=== PATIENT | male | born 1950 | race Caucasian/White ===

== ENCOUNTER 2017-10-18 12:57 | Inpatient (IN) | payer OTHER ==
[2017-10-18 13:49] VITALS: BMI 22.5
--- NOTE | 2017-10-18 18:21 | HP ---
COWS - Scale Resting Pulse: 0= [place] 80 or Below Sweatin= Chills/Flushing Restless Observation: 1= Difficult to Sit Still Pupil Size: 0= Normal to Room Light Bone or Joint Aches: 1= Mild Discomfort Runny Nose/ Eye Tearin= Runny Nose/Eyes GI Upset > 30mins: 0= None Tremor Observation: 1= Tremor [place], Not Seen Yawning Observation: 4= Several Times/Minute Anxiety or Irritability: 2=Irritable/Anxious Goose Flesh Skin: 0=Smooth Skin COWS Score: 12 Admission [facility] Chief Complaint: heroin withdrawal symptoms Allergies/Adverse Reactions: Allergies Allergy/AdvReac Type Severity Reaction Status Date / Time No Known Allergies Allergy Verified 10/18/17 17:03 History of Present Illness: 67 yo male with heroin dependence is here seeking detox. PMHX: DM II on oral medication, HTN, insomnia, depression. Reports last detox at [facility] in 2016, reports has not attempted any other detox or treatment program. Longest period of sobriety 1 year.Denies hx seizure, OD, black outs. Denies suicidal / homicidal ideation or suicide attempts. Exam Limitations: No Limitations - Ebola screening Have you traveled outside of the country in the last 21 days: No Have you had contact with anyone from an Ebola affected area: No Have you been sick,other than usual withdrawal symptoms: No - Review of Systems Constitutional: Chills, Changes in sleep (on average goes about 2-3 days without sleep) EENT: reports: Nose Congestion, Dental Problems (missing all teeth) Respiratory: reports: No Symptoms reported Cardiac: reports: Irregular Heart Rate GI: reports: Poor Fluid Intake : reports: No Symptoms Reported Musculoskeletal: reports: Muscle Weakness Integumentary: reports: No Symptoms Reported Neuro: reports: No Symptoms reported Endocrine: reports: Increased Thirst Hematology: reports: No Symptoms Reported Psychiatric: reports: Orientated x3, Depressed Other Systems: Reviewed and Negative Patient History - Patient Medical History Hx Anemia: No Hx Asthma: No Hx Chronic Obstructive Pulmonary Disease (COPD): No Hx Cancer: No Hx Cardiac Disorders: No Hx Congestive Heart Failure: No Hx Hypertension: Yes Hx Hypercholesterolemia: No Hx Pacemaker: No HX Cerebrovascular Accident: No Hx Seizures: No Hx Dementia: No Hx Diabetes: Yes (Type II) Hx Gastrointestinal Disorders: No Hx Liver Disease: No Hx Genitourinary Disorders: No Hx Sexually Transmitted Disorders: No Hx Renal Disease (ESRD): No Hx Thyroid Disease: No Hx Human Immunodeficiency Virus (HIV): No Hx Hepatitis C: No Hx Depression: No Hx Suicide Attempt: No Hx Bipolar Disorder: No Hx Schizophrenia: No - Patient Surgical History Past Surgical History: Yes Hx Neurologic Surgery: No Hx Cataract Extraction: No Hx Cardiac Surgery: No Hx Lung Surgery: No Hx Breast Surgery: No Hx Breast Biopsy: No Hx Abdominal Surgery: No Hx Appendectomy: No Hx Cholecystectomy: No Hx Genitourinary Surgery: No Hx Section: No Hx Orthopedic Surgery: No Other Surgical History: left 2nd toe amputation w/ local anesthesia Anesthesia Reaction: No - PPD History Previous Implant?: Yes Documented Results: Negative w/o proof Implanted On Prior [facility] Admission?: Yes Date: 05/01/16 Results: 0mm PPD to be Administered?: Yes - Reproductive History Patient is a Female of Child Bearing Age (11 -55 yrs old): No - Smoking Cessation Smoking history: Never smoked Have you smoked in the past 12 months: No Hx Chewing Tobacco Use: No Initiated information on smoking cessation: No - Substance & Tx. History Hx Alcohol Use: No Hx Substance Use: Yes Substance Use Type: Heroin Hx Substance Use Treatment: Yes ([facility] 2015) - Substances Abused Heroin Route: Inhalation Frequency: Daily Amount used: 10 bags Age of first use: 21 Date of Last Use: 10/17/17 Family Disease History - Family Disease History Family History: Unable to Obtain (does not know family history) Admission Physical Exam BHS - Vital Signs Vital Signs: Vital Signs - 24 hr 10/18/17 13:47 Temperature 96.3 F L Pulse Rate 58 L Respiratory 20 Rate Blood Pressure 187/96 - Physical General Appearance: Yes: Disheveled, Mild Distress, Thin, Anxious HEENTM: Yes: EOMI, Hearing grossly Normal, Normocephalic, Normal Voice, Pharynx Normal, Tm's normal, Nasal Congestion Respiratory: Yes: Chest Non-Tender, Lungs Clear, Normal Breath Sounds, No Respiratory Distress, No Accessory Muscle Use Neck: Yes: Within Normal Limits Breast: Yes: Breast Exam Deferred Cardiology: Yes: Regular Rhythm, Regular Rate Abdominal: Yes: Normal Bowel Sounds, Non Tender, Flat, Soft Genitourinary: Yes: Within Normal Limits Back: Yes: Normal Inspection Musculoskeletal: Yes: full range of Motion, Gait Steady, Pelvis Stable Extremities: Yes: Normal Capillary Refill, Normal Inspection, Normal Range of Motion, Non-Tender Neurological: Yes: Within Normal Limits, court assistant II-XII NML intact, Fully Oriented, Alert, Motor Strength 5/5, Depressed Affect Integumentary: Yes: Normal Color, Warm, Moist, Other (poor skin turgor) Lymphatic: Yes: Within Normal Limits - Addiitonal Findings: [facility] OFFICIAL: Reference #: [id number] , no narcotics prescribe since 05/31/17. Medication list review, patient denies ever taking isosorbide, labetalol or atorvastatin - Diagnostic (1) Diabetes mellitus type II, non insulin dependent Current Visit: Yes Status: Chronic (2) Opioid dependence with withdrawal Current Visit: Yes Status: Acute (3) Hypertension Current Visit: Yes Status: Acute Qualifiers: Hypertension type: essential hypertension Qualified Code(s): I10 - Essential (primary) hypertension (4) Depressed affect Current Visit: Yes Status: Acute (5) Elevated blood pressure reading in office with diagnosis of hypertension Current Visit: Yes Status: Acute (6) Elevated blood sugar level Current Visit: Yes Status: Acute (7) Dehydration Current Visit: Yes Status: Acute Cleared for Admission [facility] - Detox or Rehab [facility] Level of Care: Medically Managed Detox Regimen/Protocol: Methadone S Breath Alcohol Content Breath Alcohol Content: 0 Urine Drug Screen - Results Drug Screen Negative: No Urine Drug Screen Results: OPI-Opiates, MTD-Methadone
[2017-10-18] MEDS ORDERED: MAGNESIUM CITRATE 300 ML BOTTLE PO PRN (18:33)
[2017-10-18] MEDS ORDERED: MAG HYDROX/AL HYDROX/SIMETH 30 ML UNIT-DOSE CUP PO PRN (18:33)
[2017-10-18] MEDS ORDERED: P-EPHED 60MG/TRIPROLIDI 2.5MG TABLET PO PRN (18:33)
[2017-10-18] MEDS ORDERED: LOPERAMIDE HCL 2 MG CAPSULE PO PRN (18:33)
[2017-10-18] MEDS ORDERED: MAGNESIUM HYDROX 2400MG/30ML ORAL SUSPENSION 30 ML CUP PO PRN (18:33)
[2017-10-18] MEDS ORDERED: METHADONE HCL 10 MG TABLET (FOR DETOX USE ONLY) PO ONE ×2 (18:33→23:00)
[2017-10-18] MEDS ORDERED: guaiFENesin/D-METHORPHAN HB 10 ML UNIT-DOSE CUPS PO PRN (18:33)
[2017-10-18] MEDS ORDERED: hydrOXYzine PAMOATE 50 MG CAPSULE (FP) PO PRN (18:33)
[2017-10-18] MEDS ORDERED: ACETAMINOPHEN 325 MG TABLET (FP) PO PRN (18:33)
[2017-10-18] MEDS ORDERED: MENTHOL/PHENOL 1 EACH UD MM PRN (18:33)
[2017-10-18] MEDS ORDERED: IBUPROFEN 400 MG TABLET (FP) PO PRN (18:33)
[2017-10-18] MEDS: diazePAM 5 MG TABLET PO PRN (19:50)
[2017-10-18] MEDS: amLODIPine BESYLATE 5 MG TABLET (FP) PO SCH (19:51)
[2017-10-18] MEDS: LISINOPRIL 20 MG TABLET (FP) PO SCH (19:51)
[2017-10-18] MEDS: MELATONIN 5 MG TABLETS PO SCH (22:12)
[2017-10-18] MEDS: THIAMINE HCL 100 MG TABLET (FP) PO SCH (22:12)
[2017-10-19 01:40] LABS: URINE APPEARANCE CLEAR; URINE BILIRUBIN NEGATIVE (NEGATIVE); URINE BLOOD NEGATIVE (NEGATIVE); URINE COLOR LTYELLOW; URINE GLUCOSE (UA) 3+ (NEGATIVE); URINE KETONE NEGATIVE (NEGATIVE); URINE LEUK ESTERASE NEGATIVE (NEGATIVE); URINE NITRITE NEGATIVE (NEGATIVE); URINE UROBILINOGEN NEGATIVE mg/dL (0.2-1.0)
[2017-10-19 02:00] LABS: URINE PROTEIN 3+ (NEGATIVE)
[2017-10-19 02:03] LABS: URINE MUCUS RARE
[2017-10-19] MEDS: diazePAM 5 MG TABLET PO PRN ×2 (06:17→22:39)
[2017-10-19] MEDS: metFORMIN HCL 500 MG TABLET (FP) PO SCH ×2 (06:18→17:29)
[2017-10-19] MEDS ORDERED: INSULIN (NOVOLOG) ASPART 100 UNITS/ML 10ML VIAL ONE ×2 (07:15→17:28)
[2017-10-19] MEDS: INSULIN SLIDING SCALE (NOVOLOG) 1 VIAL SQ SCH ×2 (07:22→17:30)
--- NOTE | 2017-10-19 08:59 | PN ---
BHS COWS - Scale Resting Pulse: 0= [place] 80 or Below Sweatin= Chills/Flushing Restless Observation: 3= Extraneous Movement Pupil Size: 1= Pupils >than Normal Bone or Joint Aches: 2= Severe Diffuse Aches Runny Nose/ Eye Tearin= Runny Nose/Eyes GI Upset > 30mins: 2= Nausea/Diarrhea Tremor Observation of Outstretched Hands: 2= Slight Tremor Visible Yawning Observation: 2= >3x During Session Anxiety or Irritability: 2=Irritable/Anxious Goose Flesh Skin: 0=Smooth Skin COWS Score: 17 BHS Progress Note (SOAP) Subjective: ALERT,IRRITABLE,ANXIOUS,INTERRUPTED SLEEP,TREMOR,PAIN IN THE BODY AND BACK Objective: 10/19/17 08:57 Vital Signs Temperature 97.7 F 10/19/17 06:00 Pulse Rate 64 10/19/17 07:30 Respiratory Rate 18 10/19/17 07:30 Blood Pressure 142/76 10/19/17 07:30 O2 Sat by Pulse Oximetry (%) EKG SINUS BRADYCARDIA 53/MIN NO CHEST PAIN,NO SOB,NO DIZZINESS Laboratory Last Values POC Glucometer 187 UNITS (80-120) 10/19/17 06:10 Urine Color Ltyellow 10/18/17 22:56 Urine Appearance Clear 10/18/17 22:56 Urine pH 6.0 (5.0-8.0) 10/18/17 22:56 Ur Specific [place] 1.014 (1.001-1.035) 10/18/17 22:56 Urine Protein 3+ (NEGATIVE) H 10/18/17 22:56 Urine Glucose (UA) 3+ (NEGATIVE) H 10/18/17 22:56 Urine Ketones Negative (NEGATIVE) 10/18/17 22:56 Urine Blood Negative (NEGATIVE) 10/18/17 22:56 Urine Nitrite Negative (NEGATIVE) 10/18/17 22:56 Urine Bilirubin Negative (NEGATIVE) 10/18/17 22:56 Urine Urobilinogen Negative mg/dL (0.2-1.0) 10/18/17 22:56 Ur Leukocyte Esterase Negative (NEGATIVE) 10/18/17 22:56 Urine WBC (Auto) 2 /hpf (3-5) 10/18/17 22:56 Urine RBC (Auto) 1 /hpf (0-3) 10/18/17 22:56 Urine Mucus Rare 10/18/17 22:56 LABS PENDING Assessment: 10/19/17 08:58 WITHDRAWAL SYMPTOM Plan: CONTINUE DETOX,BGM MONITORING
[2017-10-19] MEDS ORDERED: METHADONE HCL 10 MG TABLET (FOR DETOX USE ONLY) PO ONE (10:00)
--- NOTE | 2017-10-19 10:07 | CONSULT ---
[facility] Psychiatric Consult - Data Date of interview: 10/19/17 Admission source: [facility] Identifying data: This is 67 years old male, , father of two, homeless , on SSI, with Opioid dependence is here seeking detox. Patoejnt reports no psychiatric hospitalization hiostory. Substance Abuse History: - Smoking Cessation. Smoking history: Never smoked. Have you smoked in the past 12 months: No. Hx Chewing Tobacco Use: No. Initiated information on smoking cessation: No. - Substance & Tx. History. Hx Alcohol Use: No. Hx Substance Use: Yes. Substance Use Type: Heroin. Hx Substance Use Treatment: Yes ([facility] 2016). - Substances Abused. Heroin. Route: Inhalation. Frequency: Daily. Amount used: 10 bags. Age of first use: 21. Date of Last Use: 10/17/17 Medical History: DM-2, HTN, Psychiatric History: Ptient reports history of depression, reports no psychiatric hospitalization history, reports no psychiatric medications taking prior to admission, reports no suicidal history. Physical/Sexual Abuse/Trauma History: Denies Additional Comment: Observation. Detox Unit Care Protocol Mental Status Exam - Mental Status Exam Alert and Oriented to: Person Cognitive Function: Fair Patient Appearance: Unkempt Mood: Sad Affect: Flat Patient Behavior: Sedated Speech Pattern: Delayed Voice Loudness: Mildly Soft/Quiet Thought Process: Circumstantial Thought Disorder: Being Controlled Hallucinations: Denies Suicidal Ideation: Denies Homicidal Ideation: Denies Insight/Judgement: Fair Sleep: Difficulty falling asleep Appetite: Weight gain Muscle strength/Tone: Mild Hypotonicity Gait/Station: Shuffling Additional Comments: Observation. Detox Unit Care Protocol Psychiatric Findings - Problem List ([place] 1, 2,3) (1) Opioid-induced mood disorder Current Visit: Yes Status: Acute (2) Opioid dependence with withdrawal Current Visit: Yes Status: Acute (3) Heroin dependence Current Visit: No Status: Acute - Initial Treatment Plan Initial Treatment Plan: Observation. Detox Unit Care Protocol
[2017-10-19 10:21] LABS: HEMATOCRIT 31.5 % (35.4-49); HEMOGLOBIN 10.3 GM/dL (11.7-16.9); MCH 27.5 pg (25.7-33.7); MCHC 32.5 g/dl (32.0-35.9); MEAN CELL VOLUME 84.4 fl (80-96); MEAN PLT VOLUME 8.5 fl (7.5-11.1); PLATELET COUNT 271 K/MM3 (134-434); RBC 3.74 M/mm3 (4.00-5.60); RDW 15.5 % (11.9-15.9); WHITE BLOOD COUNT 6.7 K/mm3 (4.0-10.0)
[2017-10-19 10:42] LABS: CHLORIDE 104 mmol/L (98-107); POTASSIUM 4.5 mmol/L (3.5-5.1); SODIUM 139 mmol/L (136-145)
[2017-10-19] MEDS: PRENATAL VITAMINS W/ FOLIC ACID TABLET (FP) PO SCH (10:44)
[2017-10-19] MEDS: amLODIPine BESYLATE 5 MG TABLET (FP) PO SCH (10:45)
[2017-10-19] MEDS: LISINOPRIL 20 MG TABLET (FP) PO SCH (10:46)
[2017-10-19 10:58] LABS: ALBUMIN 2.3 g/dl (3.4-5.0); ALK PHOS 120 U/L (45-117); ANION GAP 9 (8-16); BILIRUBIN,TOTAL 0.2 mg/dL (0.2-1.0); BLOOD UREA NITROGEN 34 mg/dL (7-18); CALCIUM 8.2 mg/dL (8.5-10.1); CO2 26 mmol/L (21-32); CREATININE 2.4 mg/dL (0.7-1.3); GLUCOSE,RANDOM 215 mg/dL (74-106); SGOT/AST 18 U/L (15-37); SGPT/ALT 21 U/L (12-78); TOT PROT 5.5 g/dl (6.4-8.2)
--- NOTE | 2017-10-19 11:52 | EKG ---
Test Reason : Blood Pressure : / mmHG Vent. Rate : 053 BPM Atrial Rate : 053 BPM P-R Int : 156 ms QRS Dur : 096 ms QT Int : 442 ms P-R-T Axes : 073 061 070 degrees QTc Int : 414 ms SINUS BRADYCARDIA OTHERWISE NORMAL ECG NO PREVIOUS ECGS AVAILABLE Confirmed by CHANTAL FIGUEROA, ELLIOTT ([id number]) on 10/19/2017 11:51:58 AM Referred By: Confirmed By:ELLIOTT CORNEJO MD
[2017-10-19] MEDS: THIAMINE HCL 100 MG TABLET (FP) PO SCH (22:36)
[2017-10-19] MEDS: MELATONIN 5 MG TABLETS PO SCH (22:39)
[2017-10-20] MEDS ORDERED: INSULIN (NOVOLOG) ASPART 100 UNITS/ML 10ML VIAL ONE ×2 (07:30→22:28)
[2017-10-20] MEDS: metFORMIN HCL 500 MG TABLET (FP) PO SCH (07:32)
[2017-10-20] MEDS: INSULIN SLIDING SCALE (NOVOLOG) 1 VIAL SQ SCH (07:34)
[2017-10-20] MEDS ORDERED: METHADONE HCL 5 MG TABLET (FOR DETOX USE ONLY) PO ONE (10:00)
--- NOTE | 2017-10-20 10:03 | PN ---
BHS COWS - Scale Resting Pulse: 0= [place] 80 or Below Sweatin= Chills/Flushing Restless Observation: 3= Extraneous Movement Pupil Size: 1= Pupils >than Normal Bone or Joint Aches: 2= Severe Diffuse Aches Runny Nose/ Eye Tearin= Runny Nose/Eyes GI Upset > 30mins: 3= Vomiting/Diarrhea Tremor Observation of Outstretched Hands: 2= Slight Tremor Visible Yawning Observation: 1= 1-2x During Session Anxiety or Irritability: 2=Irritable/Anxious Goose Flesh Skin: 0=Smooth Skin COWS Score: 17 S Progress Note (SOAP) Subjective: ALERT,IRRITABLE ANXIOUS,INTERRUPTED SLEEP,TREMOR,PAIN IN THE BODY AND BACK Objective: 10/20/17 09:55 Vital Signs Temperature 97.2 F L 10/20/17 06:10 Pulse Rate 70 10/20/17 06:10 Respiratory Rate 19 10/20/17 06:10 Blood Pressure 161/70 10/20/17 06:10 O2 Sat by Pulse Oximetry (%) Laboratory Last Values WBC 6.7 K/mm3 (4.0-10.0) 10/19/17 07:00 RBC 3.74 M/mm3 (4.00-5.60) L 10/19/17 07:00 Hgb 10.3 GM/dL (11.7-16.9) L 10/19/17 07:00 Hct 31.5 % (35.4-49) L 10/19/17 07:00 MCV 84.4 fl (80-96) 10/19/17 07:00 MCH 27.5 pg (25.7-33.7) 10/19/17 07:00 MCHC 32.5 g/dl (32.0-35.9) 10/19/17 07:00 RDW 15.5 % (11.9-15.9) 10/19/17 07:00 Plt Count 271 K/MM3 (134-434) 10/19/17 07:00 MPV 8.5 fl (7.5-11.1) 10/19/17 07:00 Sodium 139 mmol/L (136-145) 10/19/17 07:00 Potassium 4.5 mmol/L (3.5-5.1) 10/19/17 07:00 Chloride 104 mmol/L (98-107) 10/19/17 07:00 Carbon Dioxide 26 mmol/L (21-32) 10/19/17 07:00 Anion Gap 9 (8-16) 10/19/17 07:00 BUN 34 mg/dL (7-18) H D 10/19/17 07:00 Creatinine 2.4 mg/dL (0.7-1.3) H D 10/19/17 07:00 Creat Clearance w eGFR 27.22 (>60) 10/19/17 07:00 POC Glucometer 157 UNITS (80-120) 10/20/17 07:27 Random Glucose 215 mg/dL (74-106) H D 10/19/17 07:00 Calcium 8.2 mg/dL (8.5-10.1) L 10/19/17 07:00 Total Bilirubin 0.2 mg/dL (0.2-1.0) D 10/19/17 07:00 AST 18 U/L (15-37) D 10/19/17 07:00 ALT 21 U/L (12-78) D 10/19/17 07:00 Alkaline Phosphatase 120 U/L (45-117) H D 10/19/17 07:00 Total Protein 5.5 g/dl (6.4-8.2) L 10/19/17 07:00 Albumin 2.3 g/dl (3.4-5.0) L D 10/19/17 07:00 Urine Color Ltyellow 10/18/17 22:56 Urine Appearance Clear 10/18/17 22:56 Urine pH 6.0 (5.0-8.0) 10/18/17 22:56 Ur Specific [place] 1.014 (1.001-1.035) 10/18/17 22:56 Urine Protein 3+ (NEGATIVE) H 10/18/17 22:56 Urine Glucose (UA) 3+ (NEGATIVE) H 10/18/17 22:56 Urine Ketones Negative (NEGATIVE) 10/18/17 22:56 Urine Blood Negative (NEGATIVE) 10/18/17 22:56 Urine Nitrite Negative (NEGATIVE) 10/18/17 22:56 Urine Bilirubin Negative (NEGATIVE) 10/18/17 22:56 Urine Urobilinogen Negative mg/dL (0.2-1.0) 10/18/17 22:56 Ur Leukocyte Esterase Negative (NEGATIVE) 10/18/17 22:56 Urine WBC (Auto) 2 /hpf (3-5) 10/18/17 22:56 Urine RBC (Auto) 1 /hpf (0-3) 10/18/17 22:56 Urine Mucus Rare 10/18/17 22:56 RPR Titer Nonreactive (NONREACTIVE) 10/19/17 07:00 Assessment: 10/20/17 10:03 WITHDRAWAL SYMPTOM Plan: CONTINUE DETOX
--- NOTE | 2017-10-20 11:08 | PN ---
[facility] Progress Note Note: Laboratory Last Values WBC 6.7 K/mm3 (4.0-10.0) 10/19/17 07:00 RBC 3.74 M/mm3 (4.00-5.60) L 10/19/17 07:00 Hgb 10.3 GM/dL (11.7-16.9) L 10/19/17 07:00 Hct 31.5 % (35.4-49) L 10/19/17 07:00 MCV 84.4 fl (80-96) 10/19/17 07:00 MCH 27.5 pg (25.7-33.7) 10/19/17 07:00 MCHC 32.5 g/dl (32.0-35.9) 10/19/17 07:00 RDW 15.5 % (11.9-15.9) 10/19/17 07:00 Plt Count 271 K/MM3 (134-434) 10/19/17 07:00 MPV 8.5 fl (7.5-11.1) 10/19/17 07:00 Sodium 139 mmol/L (136-145) 10/19/17 07:00 Potassium 4.5 mmol/L (3.5-5.1) 10/19/17 07:00 Chloride 104 mmol/L (98-107) 10/19/17 07:00 Carbon Dioxide 26 mmol/L (21-32) 10/19/17 07:00 Anion Gap 9 (8-16) 10/19/17 07:00 BUN 34 mg/dL (7-18) H D 10/19/17 07:00 Creatinine 2.4 mg/dL (0.7-1.3) H D 10/19/17 07:00 Creat Clearance w eGFR 27.22 (>60) 10/19/17 07:00 POC Glucometer 157 UNITS (80-120) 10/20/17 07:27 Random Glucose 215 mg/dL (74-106) H D 10/19/17 07:00 Calcium 8.2 mg/dL (8.5-10.1) L 10/19/17 07:00 Total Bilirubin 0.2 mg/dL (0.2-1.0) D 10/19/17 07:00 AST 18 U/L (15-37) D 10/19/17 07:00 ALT 21 U/L (12-78) D 10/19/17 07:00 Alkaline Phosphatase 120 U/L (45-117) H D 10/19/17 07:00 Total Protein 5.5 g/dl (6.4-8.2) L 10/19/17 07:00 Albumin 2.3 g/dl (3.4-5.0) L D 10/19/17 07:00 Urine Color Ltyellow 10/18/17 22:56 Urine Appearance Clear 10/18/17 22:56 Urine pH 6.0 (5.0-8.0) 10/18/17 22:56 Ur Specific [place] 1.014 (1.001-1.035) 10/18/17 22:56 Urine Protein 3+ (NEGATIVE) H 10/18/17 22:56 Urine Glucose (UA) 3+ (NEGATIVE) H 10/18/17 22:56 Urine Ketones Negative (NEGATIVE) 10/18/17 22:56 Urine Blood Negative (NEGATIVE) 10/18/17 22:56 Urine Nitrite Negative (NEGATIVE) 10/18/17 22:56 Urine Bilirubin Negative (NEGATIVE) 10/18/17 22:56 Urine Urobilinogen Negative mg/dL (0.2-1.0) 10/18/17 22:56 Ur Leukocyte Esterase Negative (NEGATIVE) 10/18/17 22:56 Urine WBC (Auto) 2 /hpf (3-5) 10/18/17 22:56 Urine RBC (Auto) 1 /hpf (0-3) 10/18/17 22:56 Urine Mucus Rare 10/18/17 22:56 RPR Titer Nonreactive (NONREACTIVE) 10/19/17 07:00 WILL D/C METFORMIN BGM ACHS WITH INSULIN COVERAGE
[2017-10-20] MEDS: LISINOPRIL 20 MG TABLET (FP) PO SCH (11:24)
[2017-10-20] MEDS: amLODIPine BESYLATE 5 MG TABLET (FP) PO SCH (11:24)
[2017-10-20] MEDS: PRENATAL VITAMINS W/ FOLIC ACID TABLET (FP) PO SCH (11:31)
[2017-10-20] MEDS: INSULIN (NOVOLOG) ASPART 100 UNITS/ML 10ML VIAL SQ SCH ×2 (17:02→22:26)
[2017-10-20] MEDS: THIAMINE HCL 100 MG TABLET (FP) PO SCH (22:25)
[2017-10-20] MEDS: MELATONIN 5 MG TABLETS PO SCH (22:26)
[2017-10-21] MEDS: diazePAM 5 MG TABLET PO PRN (06:12)
[2017-10-21] MEDS: INSULIN (NOVOLOG) ASPART 100 UNITS/ML 10ML VIAL SQ SCH ×4 (06:16→23:22)
--- NOTE | 2017-10-21 08:02 | PN ---
S Progress Note Note: Patient's blood pressure this morning is B/P 145/110. He reports mild headache. Clonidine o.1mg tablet oral ordered
[2017-10-21] MEDS ORDERED: cloNIDine HCL 0.1 MG TABLET PO ONE (08:15)
[2017-10-21] MEDS ORDERED: METHADONE HCL 5 MG TABLET (FOR DETOX USE ONLY) PO ONE (10:00)
--- NOTE | 2017-10-21 10:04 | PN ---
S Progress Note (SOAP) Subjective: ALERT,IRRITABLE,ANXIOUS,INTERRUPTED SLEEP Objective: 10/21/17 10:01 Vital Signs Temperature 97.7 F 10/21/17 09:23 Pulse Rate 64 10/21/17 09:23 Respiratory Rate 17 10/21/17 09:23 Blood Pressure 131/60 10/21/17 09:23 O2 Sat by Pulse Oximetry (%) 10/21/17 10:02 BGM 127 ON INSULIN COVERAGE 10/21/17 10:02 10/21/17 10:03 REPEAT CMP PENDING Assessment: 10/21/17 10:03 WITHDRAWAL SYMPTOM Plan: CONTINUE DETOX,BGM MONITORING WITH INSULIN COVERAGE
[2017-10-21 10:19] LABS: ANION GAP 8 (8-16); BLOOD UREA NITROGEN 35 mg/dL (7-18); CHLORIDE 108 mmol/L (98-107); CO2 24 mmol/L (21-32); GLUCOSE,RANDOM 117 mg/dL (74-106); SGPT/ALT 17 U/L (12-78); SODIUM 140 mmol/L (136-145)
[2017-10-21 10:26] LABS: ALBUMIN 2.1 g/dl (3.4-5.0); ALK PHOS 93 U/L (45-117); CALCIUM 8.1 mg/dL (8.5-10.1); CREATININE 2.3 mg/dL (0.7-1.3); SGOT/AST 13 U/L (15-37); TOT PROT 5.2 g/dl (6.4-8.2)
[2017-10-21] MEDS: PRENATAL VITAMINS W/ FOLIC ACID TABLET (FP) PO SCH (10:27)
[2017-10-21] MEDS: LISINOPRIL 20 MG TABLET (FP) PO SCH (10:27)
[2017-10-21] MEDS: amLODIPine BESYLATE 5 MG TABLET (FP) PO SCH (10:27)
[2017-10-21 10:51] LABS: BILIRUBIN,TOTAL 0.3 mg/dL (0.2-1.0)
[2017-10-21] MEDS ORDERED: INSULIN (NOVOLOG) ASPART 100 UNITS/ML 10ML VIAL ONE (11:41)
[2017-10-21] MEDS: MELATONIN 5 MG TABLETS PO SCH (22:12)
[2017-10-21] MEDS: THIAMINE HCL 100 MG TABLET (FP) PO SCH (22:12)
[2017-10-22] MEDS: INSULIN (NOVOLOG) ASPART 100 UNITS/ML 10ML VIAL SQ SCH ×4 (07:23→22:38)
[2017-10-22] MEDS ORDERED: METHADONE HCL 10 MG TABLET (FOR DETOX USE ONLY) PO ONE (10:00)
[2017-10-22] MEDS: LISINOPRIL 20 MG TABLET (FP) PO SCH (11:23)
[2017-10-22] MEDS: PRENATAL VITAMINS W/ FOLIC ACID TABLET (FP) PO SCH (11:23)
[2017-10-22] MEDS: amLODIPine BESYLATE 5 MG TABLET (FP) PO SCH (11:23)
[2017-10-22] MEDS ORDERED: INSULIN (NOVOLOG) ASPART 100 UNITS/ML 10ML VIAL ONE ×2 (11:36→16:49)
--- NOTE | 2017-10-22 18:53 | PN ---
BHS Progress Note (SOAP) Subjective: sleepy shakes Objective: 10/22/17 18:50 A & O x 3 sleeping but arousable Vital Signs Temperature 98.1 F 10/22/17 17:31 Pulse Rate 60 10/22/17 17:31 Respiratory Rate 18 10/22/17 17:31 Blood Pressure 146/67 10/22/17 17:31 O2 Sat by Pulse Oximetry (%) Assessment: 10/22/17 18:53 withdrawal sx Plan: continue detox
[2017-10-22] MEDS: THIAMINE HCL 100 MG TABLET (FP) PO SCH (22:38)
[2017-10-22] MEDS: MELATONIN 5 MG TABLETS PO SCH (22:38)
[2017-10-23] MEDS ORDERED: METHADONE HCL 5 MG TABLET (FOR DETOX USE ONLY) PO ONE (06:00)
[2017-10-23] MEDS ORDERED: INSULIN (NOVOLOG) ASPART 100 UNITS/ML 10ML VIAL ONE ×2 (07:26→11:37)
[2017-10-23] MEDS: INSULIN (NOVOLOG) ASPART 100 UNITS/ML 10ML VIAL SQ SCH ×2 (07:29→11:38)
--- NOTE | 2017-10-23 08:51 | DS ---
[facility] Detox Discharge Summary Admission Date: 10/18/17 Discharge Date: 10/23/17 - History Present History: Opioid Dependence Additional Comments: 67 years old male admitted for opiate detox completed opiate detox regimen, tolerated well alert oriented x 3 wants to to [facility] desires to maintain sober - Physical Exam Results Vital Signs: Vital Signs Temperature 97.7 F 10/23/17 05:56 Pulse Rate 55 L 10/23/17 05:56 Respiratory Rate 18 10/23/17 05:56 Blood Pressure 146/67 10/23/17 05:56 O2 Sat by Pulse Oximetry (%) Pertinent Admission Physical Exam Findings: withdrawal sx Vital Signs Temperature 97.7 F 10/23/17 05:56 Pulse Rate 55 L 10/23/17 05:56 Respiratory Rate 18 10/23/17 05:56 Blood Pressure 146/67 10/23/17 05:56 O2 Sat by Pulse Oximetry (%) Laboratory Last Values WBC 6.7 K/mm3 (4.0-10.0) 10/19/17 07:00 RBC 3.74 M/mm3 (4.00-5.60) L 10/19/17 07:00 Hgb 10.3 GM/dL (11.7-16.9) L 10/19/17 07:00 Hct 31.5 % (35.4-49) L 10/19/17 07:00 MCV 84.4 fl (80-96) 10/19/17 07:00 MCH 27.5 pg (25.7-33.7) 10/19/17 07:00 MCHC 32.5 g/dl (32.0-35.9) 10/19/17 07:00 RDW 15.5 % (11.9-15.9) 10/19/17 07:00 Plt Count 271 K/MM3 (134-434) 10/19/17 07:00 MPV 8.5 fl (7.5-11.1) 10/19/17 07:00 Sodium 140 mmol/L (136-145) 10/21/17 07:00 Potassium 5.0 mmol/L (3.5-5.1) 10/21/17 07:00 Chloride 108 mmol/L (98-107) H 10/21/17 07:00 Carbon Dioxide 24 mmol/L (21-32) 10/21/17 07:00 Anion Gap 8 (8-16) 10/21/17 07:00 BUN 35 mg/dL (7-18) H 10/21/17 07:00 Creatinine 2.3 mg/dL (0.7-1.3) H 10/21/17 07:00 Creat Clearance w eGFR 28.59 (>60) 10/21/17 07:00 POC Glucometer 227 UNITS (80-120) 10/23/17 05:16 Random Glucose 117 mg/dL (74-106) H D 10/21/17 07:00 Calcium 8.1 mg/dL (8.5-10.1) L 10/21/17 07:00 Total Bilirubin 0.3 mg/dL (0.2-1.0) D 10/21/17 07:00 AST 13 U/L (15-37) L D 10/21/17 07:00 ALT 17 U/L (12-78) 10/21/17 07:00 Alkaline Phosphatase 93 U/L (45-117) D 10/21/17 07:00 Total Protein 5.2 g/dl (6.4-8.2) L 10/21/17 07:00 Albumin 2.1 g/dl (3.4-5.0) L 10/21/17 07:00 Urine Color Ltyellow 10/18/17 22:56 Urine Appearance Clear 10/18/17 22:56 Urine pH 6.0 (5.0-8.0) 10/18/17 22:56 Ur Specific [place] 1.014 (1.001-1.035) 10/18/17 22:56 Urine Protein 3+ (NEGATIVE) H 10/18/17 22:56 Urine Glucose (UA) 3+ (NEGATIVE) H 10/18/17 22:56 Urine Ketones Negative (NEGATIVE) 10/18/17 22:56 Urine Blood Negative (NEGATIVE) 10/18/17 22:56 Urine Nitrite Negative (NEGATIVE) 10/18/17 22:56 Urine Bilirubin Negative (NEGATIVE) 10/18/17 22:56 Urine Urobilinogen Negative mg/dL (0.2-1.0) 10/18/17 22:56 Ur Leukocyte Esterase Negative (NEGATIVE) 10/18/17 22:56 Urine WBC (Auto) 2 /hpf (3-5) 10/18/17 22:56 Urine RBC (Auto) 1 /hpf (0-3) 10/18/17 22:56 Urine Mucus Rare 10/18/17 22:56 RPR Titer Nonreactive (NONREACTIVE) 10/19/17 07:00 lab noted - Treatment Hospital Course: Detox Protocol Followed, Detoxed Safely, Responded well, Discharged Condition Good, Rehab Referral Accepted Patient has Accepted a Rehab Referral to: [facility] - Medication Discharge Medications: Ambulatory Orders Amlodipine Besylate 5 mg PO DAILY #30 tablet 10/23/17 Lisinopril 20 mg PO DAILY #30 tablet 10/23/17 - Diagnosis (1) History of hepatitis C Current Visit: Yes Status: Chronic (2) Hypertension Current Visit: Yes Status: Chronic Qualifiers: Hypertension type: essential hypertension Qualified Code(s): I10 - Essential (primary) hypertension (3) Opioid dependence with withdrawal Current Visit: Yes Status: Acute - AMA Did Patient Leave Against Medical Advice: No
[2017-10-23] MEDS: LISINOPRIL 20 MG TABLET (FP) PO SCH (10:19)
[2017-10-23] MEDS: PRENATAL VITAMINS W/ FOLIC ACID TABLET (FP) PO SCH (10:19)
[2017-10-23] MEDS: amLODIPine BESYLATE 5 MG TABLET (FP) PO SCH (10:20)
[2017-10-23 11:20] VITALS: BP 150/81; PULSE 88; TEMP 98.1
== END 2017-10-23 12:30 | disposition other institution (70) | DRG 897 ==
LOC: YASAS 12:57 → Y6N 17:33
PROVIDERS: ADMIT Internal Medicine; ATTEND Internal Medicine
PROC: HZ2ZZZZ Detoxification Services for Substance Abuse Treatment (ICD-10-PCS; principal; 2017-10-18)
DX: F11.23 Opioid dependence with withdrawal (principal); F19.24 Other psychoactive substance dependence with psychoactive substance-induced mood disorder; F32.9 Major depressive disorder, single episode, unspecified; G47.00 Insomnia, unspecified; I10 Essential (primary) hypertension; E11.65 Type 2 diabetes mellitus with hyperglycemia; Z79.84 Long term (current) use of oral hypoglycemic drugs; E86.0 Dehydration; B18.2 Chronic viral hepatitis C
CPT/HCPCS: 36415; 80053; 81003; 81015; 82962; 85027; 86593; 93005; 93010; J0735